=== PATIENT | female | born 1965 | race African-American/Black ===

== ENCOUNTER 2021-12-23 03:04 | Emergency (ER) | payer OTHER ==
[~2021-12-23] VITALS: Ht 170.2 cm; Wt 64.0 kg
[2021-12-23] MEDS ORDERED: MORPHINE SULFATE 4 MG/ML CPJ (NOT FOR IM USE) IV ONE (05:00)
[2021-12-23] MEDS ORDERED: ONDANSETRON HCL 4MG/2ML INJ IV ONE (05:00)
[2021-12-23] MEDS ORDERED: FENTANYL CITRATE/PF 50MCG/ML 2ML VIAL IV ONE (05:30)
[2021-12-23] MEDS ORDERED: KETAMINE HCL 50 MG/ML 10ML IV ONE (05:30)
[2021-12-23] MEDS ORDERED: ETOMIDATE 2MG/ML 10ML VIAL IV ONE (06:15)
[2021-12-23 06:30] VITALS: BP 116/77
== END 2021-12-23 09:30 | disposition home or self-care (01) ==
LOC: ER 03:04
DX: S43.014A Anterior dislocation of right humerus, initial encounter (principal); S00.11XA Contusion of right eyelid and periocular area, initial encounter; S09.8XXA Other specified injuries of head, initial encounter; W10.8XXA Fall (on) (from) other stairs and steps, initial encounter; Y93.01 Activity, walking, marching and hiking; Y92.018 Other place in single-family (private) house as the place of occurrence of the external cause
CPT/HCPCS: 23650; 70450; 73020; 73030; 96374; 96375; 99152; 99285; J2270; J2405; J3010; J3490